=== PATIENT | male | born 1990 | race Caucasian/White ===

== ENCOUNTER 2019-05-30 23:16 | Emergency (ER) | payer SELFPAY ==
[~2019-05-30] VITALS: Ht 172.7 cm; Wt 72.7 kg
[2019-05-30 23:30] VITALS: BP 137/98
[2019-05-31] MEDS ORDERED: INSULIN REGULAR, HUMAN 100 UNITS/ML SQ ONE (00:30)
[2019-05-31 01:34] LABS: GLUCOSE,POINT OF CARE 417 MG/DL (70-110)
[2019-05-31 01:40] LABS: GLUCOSE,POINT OF CARE 400 MG/DL (70-110)
== END 2019-05-31 01:58 | disposition left against medical advice (07) ==
LOC: EMS 23:20
DX: E11.65 Type 2 diabetes mellitus with hyperglycemia (principal); F10.129 Alcohol abuse with intoxication, unspecified; F17.210 Nicotine dependence, cigarettes, uncomplicated; F12.90 Cannabis use, unspecified, uncomplicated
CPT/HCPCS: 82962; 96372; 99283; J1815